=== PATIENT | female | born 1990 | race Hispanic/Latino ===

== ENCOUNTER 2017-09-13 12:22 | Observation (INO) | payer OTHER ==
--- NOTE | 2017-09-13 12:43 | ED PDOC ---
Arrival/HPI - General Time Seen by Provider: 09/13/17 12:34 Historian: Patient - History of Present Illness Narrative History of Present Illness (Text): 09/13/17 12:35 Rani Dillon is a 26 year old female, whose past medical history includes Antiphospholipid Syndrome and CVA in 2014 with no residuals, who presents to the emergency department transferred from [facility] ER for a Code Stroke today. 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 No other complaints offered at this time. Time/Duration: 1-3 hours Symptom Onset: Sudden Symptom Course: Unchanged Activities at Onset: Light Context: Other (Gym) Past Medical History - Provider Review Nursing Documentation Reviewed: Yes - Past Medical History Past Medical History: No Previous - Psychiatric Hx Substance Use: No - Surgical History Other/Comment: ovarian cyst removed - Anesthesia Hx Anesthesia: Yes Hx Anesthesia Reactions: No Hx Malignant Hyperthermia: No - Suicidal Assessment Feels Threatened In Home Enviroment: No Family/Social History - Physician Review Nursing Documentation Reviewed: Yes Family/Social History: No Known Family HX Smoking Status: Light Smoker < 10 Cigarettes Daily Hx Substance Use: No Allergies/Home Meds Allergies/Adverse Reactions: Allergies No Known Allergies Allergy (Verified 09/19/14 11:32) Home Medications: Home Meds Medication Instructions Recorded Confirmed No Known Home Med [No Known Home 09/19/14 09/19/14 Med] Review of Systems - Physician Review All systems were reviewed & negative as marked: Yes - Review of Systems Constitutional: absent: Fevers, Night Sweats Eyes: absent: Vision Changes ENT: absent: Hearing Changes Respiratory: absent: SOB, Cough Cardiovascular: absent: Chest Pain Gastrointestinal: absent: Abdominal Pain Genitourinary Female: absent: Dysuria, Frequency Musculoskeletal: absent: Arthralgias Skin: absent: Rash, Pruritis Neurological: Other (Numbness and tingling to hands). absent: Headache Endocrine: absent: Diaphoresis Hemo/Lymphatic: absent: Adenopathy Psychiatric: absent: Anxiety, Depression Physical Exam Vital Signs Reviewed: Yes Vital Signs Temp Pulse Resp BP Pulse Ox 09/13/17 13:01 98.7 F 110 H 22 161/98 H 99 Temperature: Afebrile Blood Pressure: Hypertensive Pulse: Tachycardic Respiratory Rate: Normal Appearance: Positive for: Well-Appearing, Non-Toxic, Comfortable Pain Distress: None Mental Status: Positive for: Alert and Oriented X 3 Medical Decision Making ED Course and Treatment: 09/13/17 12:44 Impression: 26 year old female transferred from [facility] Emergency department for a possible Code Stroke due to numbness and tingling about 1.5 hours prior to arrival Plan: -- Head CT w/o contrast -- Chest X-ray -- Urinalysis -- Labs -- Reassess and disposition Progress Notes: 09/13/17 13:[address] Rebollar, who instructs to give 81mg of Aspirin and admit patient. 09/13/17 14:54 Chest X-ray: Creator : Raj Cummings MD FINDINGS: LUNGS:No active pulmonary disease. PLEURA:No significant pleural effusion identified, no pneumothorax apparent. CARDIOVASCULAR:Normal. OSSEOUS STRUCTURES:No significant abnormalities. VISUALIZED UPPER ABDOMEN:Normal OTHER FINDINGS:None. IMPRESSION: No active disease. - Lab Interpretations Lab Results: 09/13/17 13:20 09/13/17 13:20 Lab Results 09/13/17 13:20: Sodium 146, Potassium 4.7, Chloride 108 H, Carbon Dioxide 21, Anion Gap 22 H, BUN 32 H, Creatinine 1.1, Est GFR ( Amer) > 60, Est GFR ( Non-Af Amer) > 60, Random Glucose 81, Calcium 10.2, Total Bilirubin 0.5, AST 33 , ALT 30, Alkaline Phosphatase 82, Lactate Dehydrogenase 873 H, Total Creatine Kinase 40, Troponin I < 0.01, Total Protein 9.3 H, Albumin 5.1 H, Globulin 4.2, Albumin/Globulin Ratio 1.2, Triglycerides 101, Cholesterol 169 09/13/17 13:20: PT 14.7 H, INR 1.28 H 09/13/17 13:20: WBC 11.8 H, RBC 5.58, Hgb 12.3, Hct 38.2, MCV 68.5 L, MCH 22.0 L , MCHC 32.2, RDW 16.5 H, Plt Count 185, MPV 9.8, Gran % 69.2 H, Lymph % (Auto) 25.9, [place] % (Auto) 3.6, Eos % (Auto) 1.0 L, Baso % (Auto) 0.3, Gran # 8.17 H, Lymph # (Auto) 3.1, [place] # (Auto) 0.4, Eos # (Auto) 0.1, Baso # (Auto) 0.03 - RAD Interpretation Radiology Orders: 09/13/17 12:41 HEAD W/O (CODE STROKE) [CT] Stat CHEST PORTABLE [RAD] Stat - Medication Orders Current Medication Orders: Metoclopramide HCl (Reglan) 10 mg IVP ONCE ONE Stop: 09/14/17 13:44 Discontinued Medications Aspirin (Aspirin Chewable) 81 mg PO STAT STA Stop: 09/13/17 13:21 Last Admin: 09/13/17 14:15 Dose: 81 mg Magnesium Sulfate 2 gm/ Sodium (Chloride) 104 mls @ 102 mls/hr IVPB ONCE ONE Stop: 09/13/17 14:44 Ondansetron HCl (Zofran Inj) 4 mg IVP STAT STA Stop: 09/13/17 13:23 Last Admin: 09/13/17 13:30 Dose: 4 mg IVP Administration Document 09/13/17 13:30 [facility] (Rec: 09/13/17 13:30 C [id number]) Charges for Administration # of IVP Administrations 1 NIHSS Scale ([place]) Time Performed: 12:45 - How Severe is the Stoke Baseline Level of Consciousness: 0=Alert LOC to Questions: 0=Both comments correct LOC to commands: 0=Obeys both correctly Best Gaze: 0=Normal Visual: 0=No visual loss Facial: 0=Normal Motor Arm - Left: 0=No drift Motor Arm - Right: 0=No drift Motor Leg - Left: 0=No drift Motor Leg - Right: 0=No drift Limb Ataxia: 0=Absent Sensory: 0=Normal Best Language: 0=No aphasia Dysarthia: 0=Normal articulation Extinction & Inattention (Neglect): 0=Normal, no object Score: 0 Risk Level: No Stroke Risk - Scribe Statement The provider has reviewed the documentation as recorded by the Syeda Peralta Provider Scribe Attestation: All medical record entries made by the Scribe were at my direction and personally dictated by me. I have reviewed the chart and agree that the record accurately reflects my personal performance of the history, physical exam, medical decision making, and the department course for this patient. I have also personally directed, reviewed, and agree with the discharge instructions and disposition. Disposition/Present on Arrival - Present on Arrival Any Indicators Present on Arrival: No History of DVT/PE: No History of Uncontrolled Diabetes: No Urinary Catheter: No History Surgical Site Infection Following: None - Disposition Have Diagnosis and Disposition been Completed?: Yes Diagnosis: Antiphospholipid syndrome, Headache, Left hand weakness, Non compliance w medication regimen Disposition: HOSPITALIZED Disposition Time: 13:37 Patient Plan: Observation, Telemetry Patient Problems: Current Active Problems Problem Status Onset Antiphospholipid syndrome Acute Headache Acute Left hand weakness Acute Non compliance w medication regimen Acute Condition: IMPROVED
--- NOTE | 2017-09-13 13:01 | CT ---
PROCEDURE: CT HEAD WITHOUT CONTRAST. HISTORY: left hand weakness COMPARISON: 09/19/2014 CT TECHNIQUE: Axial computed tomography images were obtained through the head/brain without intravenous contrast. Radiation dose: Total exam DLP = 859 mGy-cm. This CT exam was performed using one or more of the following dose reduction techniques: Automated exposure control, adjustment of the mA and/or kV according to patient size, and/or use of iterative reconstruction technique. FINDINGS: HEMORRHAGE: No intracranial hemorrhage. BRAIN: No mass effect or edema. No atrophy or chronic microvascular ischemic changes. There is a chronic lacunar infarct in the right thalamus. VENTRICLES: Unremarkable. No hydrocephalus. CALVARIUM: Unremarkable. PARANASAL SINUSES: Unremarkable as visualized. No significant inflammatory changes. MASTOID AIR CELLS: Unremarkable as visualized. No inflammatory changes. OTHER FINDINGS: None. IMPRESSION: No acute intracranial findings
--- NOTE | 2017-09-13 13:28 | RAD ---
HISTORY: Code Stroke COMPARISON: 09/19/2014 FINDINGS: LUNGS: No active pulmonary disease. PLEURA: No significant pleural effusion identified, no pneumothorax apparent. CARDIOVASCULAR: Normal. OSSEOUS STRUCTURES: No significant abnormalities. VISUALIZED UPPER ABDOMEN: Normal. OTHER FINDINGS: None. IMPRESSION: No active disease.
[2017-09-13 13:33] LABS: BASO # 0.03 K/mm3 (0.0-2.0); BASO % 0.3 % (0.0-3.0); EOS # 0.1 (0.0-0.7); GRAN # 8.17 (1.4-6.5); GRAN % 69.2 % (50.0-68.0); HEMOGLOBIN 12.3 g/dL (12.0-16.0); LYMPH # 3.1 (1.2-3.4); LYMPH % 25.9 % (22.0-35.0); MEAN CELL VOLUME 68.5 fl (80.0-105.0); MEAN CORPUSCULAR HGB CONC 32.2 g/dl (31.0-37.0); MEAN PLATELET VOLUME 9.8 fl (7.0-11.0); MONO # 0.4 (0.1-0.6); MONO % 3.6 % (1.0-6.0); RBC 5.58 10^6/uL (3.5-6.1); RED CELL DISTRIBUTION WIDTH 16.5 % (11.5-14.5); WHITE BLOOD COUNT 11.8 10^3/ul (4.5-11.0)
[2017-09-13 13:34] LABS: ALB/GLOB RATIO 1.2 (1.1-1.8); ALBUMIN 5.1 g/dL (3.0-4.8); ALT/SGPT 30 U/L (7-56); AST/SGOT 33 U/L (14-36); BLOOD UREA NITROGEN 32 mg/dL (7-21); CALCIUM 10.2 mg/dL (8.4-10.5); GFR AFRICAN-AMERICAN > 60; GFR NON-AFRICAN AMERICAN > 60
[2017-09-13 13:36] LABS: INR 1.28 (0.93-1.08); PROTHROMBIN TIME 14.7 SECONDS (9.4-12.5)
[2017-09-13] MEDS ORDERED: Magnesium Sulfate 2 GM in Sodium Chloride 0.9% 100 ML IVPB ONE (13:43)
[2017-09-13 13:45] LABS: TROPONIN I < 0.01 ng/mL
--- NOTE | 2017-09-13 13:46 | CP.PCM.CON ---
<eJs Byrnes - Last Filed: 09/13/17 16:48> History of Present Illness - History of Present Illness History of Present Illness: 26yo female PMHx antiphospholipid syndrome not compliant with medication and PCOS presents with numbness and tingling of her L arm and hand since the morning. Patient reports she woke up with a headache 6-7/10 in intensity that she has been having for PMHx: antiphospholipid syndrome, PCOS PSurgHx: L ovarian cyst removal Meds: Xarelto 10mg qd- noncompliant ALL: NKDA FamHx: HTN; no hx of CVA or cancer SocHx: quit smoking 2014- used to smoke 1/2ppd for 5 years; EtOH socially; denies drug use; works at [employer] Past Patient History - Past Social History Smoking Status: Light Smoker < 10 Cigarettes Daily - CARDIAC Hx Cardiac Disorders: No - PULMONARY Hx Respiratory Disorders: No - NEUROLOGICAL Hx Neurological Disorder: Yes HX Cerebrovascular Accident: Yes - HEENT Hx HEENT Problems: No - RENAL Hx Chronic Kidney Disease: No - ENDOCRINE/METABOLIC Hx Endocrine Disorders: No - HEMATOLOGICAL/ONCOLOGICAL Hx Blood Disorders: Yes Other/Comment: APS - INTEGUMENTARY Hx Dermatological Problems: No - MUSCULOSKELETAL/RHEUMATOLOGICAL Hx Musculoskeletal Disorders: No - GASTROINTESTINAL Hx Gastrointestinal Disorders: No - GENITOURINARY/GYNECOLOGICAL Hx Genitourinary Disorders: No - PSYCHIATRIC Hx Substance Use: No - SURGICAL HISTORY Other/Comment: ovarian cyst removed - ANESTHESIA Hx Anesthesia: Yes Hx Anesthesia Reactions: No Hx Malignant Hyperthermia: No Meds Allergies/Adverse Reactions: Allergies Allergy/AdvReac Type Severity Reaction Status Date / Time No Known Allergies Allergy Verified 09/13/17 16:15 - Medications Medications: Current Medications Magnesium Sulfate 2 gm/ Sodium (Chloride) 104 mls @ 102 mls/hr IVPB ONCE ONE Stop: 09/13/17 14:44 Metoclopramide HCl (Reglan) 10 mg IVP ONCE ONE Stop: 09/14/17 13:44 Results - Vital Signs Recent Vital Signs: Last Vital Signs Temp 98.7 F 09/13/17 13:01 Pulse 110 H 09/13/17 13:01 Resp 22 09/13/17 13:01 BP 161/98 H 09/13/17 13:01 Pulse Ox 99 09/13/17 13:01 - Labs Result Diagrams: 09/13/17 13:20 09/13/17 13:20 Assessment & Plan - Assessment and Plan (Free Text) Plan: -CT head: unremarkable -Brain MRI: unremarkable -CTA head/neck: unremarkable -patient given 1dose of Magsulfate and reglan -chemical dependency counselor patient on importance of anticoagulation compliance -continue management as per primary Discussed with Dr. Keturah Byrnes PGY2 <Atul Rebollar - Last Filed: 09/13/17 18:45> Meds - Medications Medications: Current Medications Metoclopramide HCl (Reglan) 10 mg IVP ONCE ONE Stop: 09/14/17 13:44 Rivaroxaban (Xarelto) 10 mg PO DAILY LUCERO PRN Reason: Protocol Last Admin: 09/13/17 17:28 Dose: 10 mg Results - Vital Signs Recent Vital Signs: Last Vital Signs Temp 98.6 F 09/13/17 18:00 Pulse 91 H 09/13/17 18:00 Resp 19 09/13/17 18:00 BP 118/75 09/13/17 18:00 Pulse Ox 99 09/13/17 18:00 - Labs Result Diagrams: 09/13/17 13:20 09/13/17 13:20 Labs: Laboratory Results - last 24 hr 09/13/17 14:05 Urine Color Yellow Urine Appearance Clear Urine pH 6.0 Ur Specific [place] 1.015 Urine Protein Trace H Urine Glucose (UA) Negative Urine Ketones 15 H Urine Blood Negative Urine Nitrate Negative Urine Bilirubin Negative Urine Urobilinogen 0.2 Ur Leukocyte Esterase Negative Urine RBC 0 - 2 Urine WBC 1 - 3 Ur Epithelial Cells 3 - 4 Urine Bacteria Few Assessment & Plan (1) Left hand weakness Status: Acute Priority: High - Assessment and Plan (Free Text) Plan: We discussed the possibility of changing Xarelto to Eliquis, since she is not compliant with Xarelto due to how it makes her feel. Attending/Attestation - Attestation I have personally seen and examined this patient.: Yes I have fully participated in the care of the patient.: Yes I have reviewed all pertinent clinical information: Yes
[2017-09-13 14:16] LABS: URINE BILIRUBIN NEGATIVE (NEGATIVE); URINE BLOOD NEGATIVE (NEGATIVE); URINE GLUCOSE (UA) NEGATIVE (NEGATIVE); URINE LEUKOCYTE ESTERASE NEGATIVE Leu/uL (NEGATIVE); URINE PROTEIN TRACE mg/dL (<30 mg/dL); URINE UROBILINOGEN 0.2 E.U./dL (<1 E.U./dL)
[2017-09-13 14:20] LABS: URINE APPEARANCE CLEAR (CLEAR); URINE COLOR YELLOW (YELLOW)
[2017-09-13 14:28] LABS: URINE BACTERIA FEW (NEG); URINE RBC 0 - 2 /hpf (0-2)
--- NOTE | 2017-09-13 15:06 | CT ---
PROCEDURE: CT Angiography of the neck with contrast HISTORY: code stroke COMPARISON: None available. TECHNIQUE: Contiguous axial images of the neck were obtained from the level of the skull-base to the superior mediastinum in the arteriographic phase of enhancement. Coronal and sagittal reformats or also generated. IV contrast dose: 150 cc of Omni 350 Radiation Dose - DLP: 653 mGy-cm This CT exam was performed using one or more of the following dose reduction techniques: Automated exposure control, adjustment of the mA and/or kV according to patient size, and/or use of iterative reconstruction technique. FINDINGS: RIGHT CAROTID ARTERIES: Common Carotid Artery: Normal. Carotid Bifurcation: Normal. Internal Carotid Artery:Normal. External Carotid Artery (proximal branches): Normal. LEFT CAROTID ARTERIES: Common Carotid Artery: Normal. Carotid Bifurcation: Normal. Internal Carotid Artery:Normal. External Carotid Artery (proximal branches): Normal. VERTEBRAL ARTERIES: Right Vertebral Artery: Normal. Left Vertebral Artery: Normal. OTHER FINDINGS: None. IMPRESSION: Normal CT Angiography of the neck. CT Angiography of the Brain. HISTORY: code stroke COMPARISON: None available. TECHNIQUE: CT angiography of the intracranial arteries was performed. Coronal and sagittal maximum intensity projection reformated images were generated. This CT exam was performed using one or more of the following dose reduction techniques: Automated exposure control, adjustment of the mA and/or kV according to patient size, and/or use of iterative reconstruction technique. FINDINGS: INTERNAL CEREBRAL ARTERIES: Unremarkable. The skull base, petrous, cavernous and supraclinoid segments are bilaterally widely patent. ANTERIOR CEREBRAL ARTERIES: Unremarkable. A1 and A2 segments are widely patent. Smaller distal branches unremarkable, as visualized. MIDDLE CEREBRAL ARTERIES: Unremarkable. M1 and M2 segments are widely patent. Perisylvian branches grossly symmetric. POSTERIOR CIRCULATION: Basilar Artery: Unremarkable. Distal Vertebral Arteries: Unremarkable. Posterior Cerebral Arteries: Unremarkable. Posterior Inferior Cerebellar Arteries: Unremarkable. ANEURYSM/ VASCULAR MALFORMATIONS: None. OTHER FINDINGS: None. IMPRESSION: Unremarkable CT Angiography of the Brain.
--- NOTE | 2017-09-13 15:32 | MRI ---
PROCEDURE: MRI BRAIN WITHOUT CONTRAST HISTORY: code stroke COMPARISON: None. TECHNIQUE: Multiplanar, multisequence MR images of the brain were obtained without intravenous contrast enhancement. FINDINGS: HEMORRHAGE: None DWI: No evidence of an acute or early subacute infarction. BRAIN PARENCHYMA: There is a chronic lacunar infarct in the right thalamus. No acute findings VENTRICLES: Unremarkable. No hydrocephalus. CRANIUM: Unremarkable. ORBITS: Grossly unremarkable. PARANASAL SINUSES/MASTOIDS: Clear VASCULAR SYSTEM: Skull base flow voids intact. OTHER FINDINGS: None. IMPRESSION: No acute intracranial findings
--- NOTE | 2017-09-13 20:58 | PN ---
DATE: 09/13/2017 SUBJECTIVE: This 26-year-old female was examined at her bedside in the presence of nurse, Marie Borges. The patient presented to [facility] ER complaining of left hand numbness. There, she underwent a code stroke protocol including head CT, brain MRI, and head and neck CTA. All were unremarkable for an acute stroke. Brain MRI was notable for a chronic lacunar infarct in her right thalamus. The patient has a history of a right thalamic stroke approximately 3 years ago and has a history of recurrent TIAs in the setting of an antiphospholipid antibody syndrome. The patient was initially treated with Coumadin, however, was having difficulty with maintaining therapeutic INRs. She states she is followed by Dr. Hughes, a horticultural worker in [place], [place] and at the current time, is taking Xarelto 10 mg p.o. daily, however, not consistently. The patient states she missed her last dose or two and states she does not feel as well as she did on oral Coumadin and denies any other significant medical history. On review of her medical record, she has no known allergies to medication. SOCIAL HISTORY: She states and she is employed as an medical office supervisor for [employer] She is a nondrinker, nonsmoker, non IV drug misuser. ALLERGIES: NO KNOWN ALLERGIES TO MEDICATIONS WERE NOTED. FAMILY HISTORY: Significant for thyroid disease, hypertension, and history of a maternal grandmother with ovarian cancer and she is status post ovarian cystectomy in the past. REVIEW OF SYSTEMS: HEAD: As per HPI. EYES: No change in visual acuity. EARS: No hearing loss. THROAT: No swallowing difficulty. NECK: No stiffness. CARDIAC: No hypertension. No knowledge of angina or heart attack. PULMONARY: No cough. No hemoptysis. GASTROINTESTINAL: No dyspepsia. GENITOURINARY: No dysuria. SKIN: No rash. VASCULAR: No claudication. PSYCHOLOGIC: No knowledge of depression. NEUROLOGIC: Old right thalamic stroke and recurrent TIAs. History of antiphospholipid antibody syndrome. PHYSICAL EXAMINATION: VITAL SIGNS: Temperature 98.1, respirations 17, pulse 95, blood pressure 134/82. Pulse ox 97% room air. HEENT: Head normocephalic, atraumatic. Eyes: No icterus. Ears: Clear. Throat: Noninjected. NECK: Supple. HEART: Regular S1, S2. LUNGS: Clear. ABDOMEN: Obese. EXTREMITIES: No edema. SKIN: Without rash. NEUROLOGICAL: 5/5 motor strength, arms and legs. The patient is complaining of mild numbness of her left hand. VASCULAR: Legs warm to touch. PSYCHOLOGICAL: Alert and oriented x3. LABORATORY DATA: White count 11,800, hemoglobin 12.3, hematocrit 38.2, platelets 185,000. PT/INR 1.28. Sodium 146, K 4.7, chloride 108, bicarb 21, BUN 32, creatinine 1.1, random blood sugar 81. All liver function was normal including bilirubin 0.5, AST 33, ALT 30, and alkaline phosphatase 82. CPK 40. Troponin less than 0.01. Triglyceride 101 and cholesterol 169. Urinalysis showed a few bacteria. IMPRESSION: A 26-year-old female with history of old right thalamic stroke, now with recurrent transient ischemic attacks, history of difficulty with control of PT/INR, on Coumadin for a patient with antiphospholipid syndrome and recurrent transient ischemic attacks, who was prescribed Xarelto with recent noncompliance. PLAN: To admit this patient to cardiac unit. She has been given chewable Ecotrin 81 mg stat. She was also given 2 g of IV magnesium sulfate and is ordered to receive Xarelto 10 mg daily and has an order for a heart-healthy diet and a consultation with neurology for code stroke. Based on neurology recommendations, additional testing and workup will be entertained. The patient will continue to follow up with her horticultural worker, Dr. Hughes, and all of the above was reviewed in detail with the patient and nursing. She will have neuro checks this evening as well. Rocio Marte MD KEVIN
[2017-09-13 21:41] LABS: HDL CHOLESTEROL 31 mg/dL (29-60)
[2017-09-13 21:52] LABS: LDL CHOLESTEROL 111 mg/dL (0-129)
[2017-09-13 22:04] VITALS: BMI 43.7
[2017-09-13] MEDS ORDERED: Pneumococcal 23-Valent Vaccine IM ONE (22:04)
--- NOTE | 2017-09-14 09:34 | CARD ---
APPROVED REPORT EKG Measurement Heart [id number] <Conclusion> Sinus tachycardia PRWP No change
[2017-09-14] MEDS ORDERED: Metoprolol 1 mg/ml Inj IVP ONE (11:55)
[2017-09-14] MEDS ORDERED: Nitroglycerin 2% Ointment Foilpak UD TOP PRN (12:04)
[2017-09-14 13:22] VITALS: RESP 20
--- NOTE | 2017-09-14 16:30 | CP.PCM.PN ---
Subjective - Date & Time of Evaluation Date of Evaluation: 09/14/17 Time of Evaluation: 13:00 - Subjective Subjective: Ms. Dillon was seen and examined today at bedside. She said that she still has left hand numbness, but it is improved. Her headache is better, but her BP has been elevated. She was started on Lopressor. The patient does not want to take Xarelto because it makes her feel sick. So, I recommended Eliquis as an alternative. Objective - Vital Signs/Intake and Output Vital Signs (last 24 hours): Temp Pulse Resp BP Pulse Ox 97.3 F L 89 20 138/89 98 09/14/17 12:00 09/14/17 16:02 09/14/17 12:00 09/14/17 16:02 09/14/17 10:00 Intake and Output: 09/14/17 09/14/17 06:59 18:59 Intake Total 1480 Balance 1480 - Medications Medications: Current Medications Acetaminophen (Tylenol 325mg Tab) 650 mg PO Q6H PRN PRN Reason: Headache Last Admin: 09/14/17 14:47 Dose: 650 mg Metoprolol Tartrate (Lopressor) 25 mg PO BID LUCERO Nitroglycerin (Nitro-Bid 2% Oint) 1 ea TOP Q4H PRN PRN Reason: hypertension Last Admin: 09/14/17 13:35 Dose: 1 ea Rivaroxaban (Xarelto) 10 mg PO DAILY LUCERO PRN Reason: Protocol Last Admin: 09/14/17 09:44 Dose: 10 mg - Labs Labs: PT 14.7 SECONDS (9.4-12.5) H 09/13/17 13:20 INR 1.28 (0.93-1.08) H 09/13/17 13:20 - Neurological Exam Neurological Exam: Awake, CN II-XII Intact, Normal Gait, Oriented x3 Neuro motor strength exam: Left Upper Extremity: 5, Right Upper Extremity: 5, Left Lower Extremity: 5, Right Lower Extremity: 5 Additional comments: Left hand numbness, improved hand contamination consultant. Assessment and Plan (1) Left hand weakness Assessment & Plan: Likely due to complicated migraine. This seems to be improving. I recommend starting magnesium oxide 400 mg BID and continue either a beta-serafin ( lopressor), or start Norvasc 5 mg daily for BP management and migraine prophylaxis. PT/OT eval is recommended. Thank you. Status: Acute
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
[2017-09-15] MEDS ORDERED: Magnesium Sulfate 2 GM in Sodium Chloride 0.9% 100 ML IVPB ONE (06:11)
[2017-09-15] MEDS ORDERED: Valproate 500 MG in Sodium Chloride 0.9% 100 ML IVPB ONE (06:12)
--- NOTE | 2017-09-15 06:16 | CP.PCM.PN ---
Subjective - Date & Time of Evaluation Date of Evaluation: 09/15/17 Time of Evaluation: 06:13 - Subjective Subjective: Ms. Dillon was seen and examined at the bedside. She is alert, oriented in all spheres. She complains of right frontal headache, non-radiating, 6/10 in intensity, pressure like. She denies any photophobia, phonophobia, blurred vision, diplopia, numbness, weakness, nausea, or vomiting. She is able to follow all commands. There was no untoward events overnight. Objective - Vital Signs/Intake and Output Vital Signs (last 24 hours): Temp Pulse Resp BP Pulse Ox 98.1 F 90 20 150/86 97 09/15/17 00:01 09/15/17 02:00 09/15/17 00:01 09/15/17 00:01 09/15/17 00:01 Intake and Output: 09/14/17 09/15/17 18:59 06:59 Intake Total 240 Output Total 0 Balance 240 - Medications Medications: Current Medications Acetaminophen (Tylenol 325mg Tab) 650 mg PO Q6H PRN PRN Reason: Headache Last Admin: 09/14/17 19:49 Dose: 650 mg Dexamethasone (Decadron Inj) 10 mg IVP ONCE ONE Stop: 09/15/17 06:13 Magnesium Sulfate 2 gm/ Sodium (Chloride) 104 mls @ 102 mls/hr IVPB ONCE ONE Stop: 09/15/17 07:12 Valproate Sodium 500 mg/ (Sodium Chloride) 105 mls @ 100 mls/hr IVPB ONCE ONE Stop: 09/15/17 07:14 Magnesium Oxide (Mag-Ox) 400 mg PO BID LUCERO Metoprolol Tartrate (Lopressor) 50 mg PO BID LUCERO Nitroglycerin (Nitro-Bid 2% Oint) 1 ea TOP Q4H PRN PRN Reason: hypertension Last Admin: 09/14/17 13:35 Dose: 1 ea Rivaroxaban (Xarelto) 10 mg PO DAILY [facility] PRN Reason: Protocol Last Admin: 09/14/17 09:44 Dose: 10 mg - Labs Labs: PT 14.7 SECONDS (9.4-12.5) H 09/13/17 13:20 INR 1.28 (0.93-1.08) H 09/13/17 13:20 - Constitutional Appears: No Acute Distress - Head Exam Head Exam: NORMAL INSPECTION - Neurological Exam Neurological Exam: Alert, Awake, CN II-XII Intact, Oriented x3 Neuro motor strength exam: Left Upper Extremity: 5, Right Upper Extremity: 5, Left Lower Extremity: 5, Right Lower Extremity: 5 Additional comments: Alert, oriented, follows all commands, no numbness. Sensation is intact. Assessment and Plan (1) Headache Assessment & Plan: Case discussed with Dr. Rebollar, continue all current medical. physical, and occupational therapies. Recommend Magnesium 2 gms IVPB for one dose, Depakote 500 mg IVPB for one dose, and decadron 10 mg IV for one dose. Recommend to switch from xarelto to eliquis 5 mg PO BID, lipitor 20 mg Po daily.Recommend blood pressure control, statin to keep LDL < 70. Any statin depending on her insurance. If patient will be discharge, recommend to follow up with Dr. Rebollar at [address] [facility] [address]. Tel [phone]. Status: Acute
[2017-09-15] MEDS ORDERED: Magnesium Oxide 400 mg Tab UD PO SCH (10:00)
[2017-09-15 10:01] VITALS: O2SAT 96
[2017-09-15 13:22] VITALS: BP 145/95; TEMP 98.8
[2017-09-15 14:02] VITALS: PULSE 92
--- NOTE | 2017-09-15 20:12 | DS ---
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 DISPOSITION: Home. FOLLOWUP: Patient to follow up with Dr. Rebollar, neurologist, in 48 hours as well as her PMD, Dr. Hughes, within the next 48 hours. Patient was cleared for discharge by neurologist this morning. DISCHARGE MEDICATIONS: Includes Xarelto 10 mg p.o. daily, metoprolol tartrate 50 mg p.o. b.i.d. to be adjusted by PMD as outpatient, magnesium oxide 400 mg p.o. b.i.d., and Lipitor 20 mg p.o. at bedtime. SUMMARY: This 26-year-old female was admitted to [facility] after presenting to the [facility] ER with left hand numbness and history of antiphospholipid syndrome and old right thalamic stroke. She was seen in urgent consultation by code stroke neurologist, Dr. Rebollar, and completed a head CT, brain MRI, head and neck CTA, and was not found to have any acute stroke and found to have symptoms consistent with possible TIA in the setting of noncompliance with outpatient Xarelto. The patient states that she had intolerance to Coumadin in her past where she could not achieve a steady state INR and also did not like the feeling she had with Xarelto and was noncompliant with this medication at times as well. During the course of her hospital stay, it was felt that she was experiencing a headache, probably secondary to a migraine, and was advised to take metoprolol to be dose adjusted based on symptoms and blood pressure results. At the time of discharge, temperature 98.6, respirations 20, pulse 96, and blood pressure 145/95 with a pulse ox of 96% room air. White count 11,800, hemoglobin 12.3, hematocrit 38.2, platelets 185,000. PT/INR 1.28. Sodium 146, K 4.7, chloride 108, bicarb 21, BUN 32, creatinine 1.1, random blood sugar was 81. All liver function testing was normal including bilirubin 0.5, AST 33, ALT 30, and alk phos 82. Cholesterol 169, triglycerides 101. Patient was cleared for discharge to home by Neurology and advised follow-ups as outlined. Patient was also advised on a 2-g sodium heart-healthy diet, weight reduction, and to begin a walking program daily. Hopefully, she will be compliant with these recommendations as well as the importance of taking her daily Xarelto and all of the above was reviewed in detail with the patient and nursing at bedside. All questions were answered. Rocio Marte MD MTDTitus
== END 2017-09-15 16:28 | disposition home or self-care (01) ==
LOC: ED 12:22 → ERH 13:24 → 2RNO 15:39
PROVIDERS: ADMIT Internal Medicine; ATTEND Internal Medicine
DX: G45.9 Transient cerebral ischemic attack, unspecified (principal); I10 Essential (primary) hypertension; F41.9 Anxiety disorder, unspecified; D68.61 Antiphospholipid syndrome; E28.2 Polycystic ovarian syndrome; Z79.01 Long term (current) use of anticoagulants; Z80.41 Family history of malignant neoplasm of ovary; F17.210 Nicotine dependence, cigarettes, uncomplicated; Z86.73 Personal history of transient ischemic attack (TIA), and cerebral infarction without residual deficits; Z91.14 Patient's other noncompliance with medication regimen; Z91.19 Patient's noncompliance with other medical treatment and regimen; E66.9 Obesity, unspecified; Z68.42 Body mass index [BMI] 45.0-49.9, adult
CPT/HCPCS: 70450; 70496; 70498; 70551; 71045; 80053; 80061; 81001; 82550; 83615; 84484; 85025; 85610; 93005; 96365; 96374; 97116; 97161; 99285; G0378; G8978; G8979; J1100; J2405; J2765; J3475; Q9967